=== PATIENT | female | born 1995 | race African-American/Black ===

== ENCOUNTER 2021-04-06 08:30 | Emergency (ER) | payer MEDICAID ==
[~2021-04-06] VITALS: Ht 170.2 cm; Wt 82.0 kg
[2021-04-06 09:47] LABS: CLARITY URINE CLEAR (CLEAR); COLOR URINE YELLOW (YELLOW); KETONES URINE NEGATIVE (NEGATIVE); LEUKOCYTE ESTERASE URINE TRACE (NEGATIVE); NITRITE URINE NEGATIVE (NEGATIVE); OCCULT BLOOD URINE NEGATIVE (NEGATIVE); PH URINE 6.5 (4.5-8.0); PROTEIN URINE NEGATIVE (NEGATIVE); SPECIFIC GRAVITY URINE 1.026 (1.005-1.030); UROBILINOGEN URINE 0.2 E.U./dL (0.2-1.0)
[2021-04-06] MEDS ORDERED: LIDOCAINE HCL 1% 20ML VIAL (Pyxis) INJ INFIL ONE (10:45)
[2021-04-06] MEDS ORDERED: CEFTRIAXONE SODIUM 500 MG/VIAL IM ONE (10:45)
[2021-04-06] MEDS ORDERED: IBUPROFEN 800MG TABLET PO ONE (10:45)
[2021-04-06] MEDS: LIDOCAINE HCL 1% 10 MG/ML 10ML VIAL INJ NR ×2 (10:59→11:05)
[2021-04-06 11:00] VITALS: BP 123/73
[2021-04-06] MEDS ORDERED: DOXY100C5 MT (11:50)
[2021-04-06] MEDS ORDERED: IBUP-2030 MT (11:50)
== END 2021-04-06 12:05 | disposition home or self-care (01) ==
LOC: ER 08:30
DX: R10.2 Pelvic and perineal pain (principal); Z11.3 Encounter for screening for infections with a predominantly sexual mode of transmission
CPT/HCPCS: 76830; 76856; 81003; 81025; 87210; 96372; 99284; J0696; J3490